=== PATIENT | female | born 1980 | race African-American/Black ===

== ENCOUNTER 2021-08-26 18:43 | Emergency (ER) | payer MEDICAID ==
[~2021-08-26] VITALS: Ht 165.1 cm; Wt 123.0 kg
[~2021-08-26 18:43] MED LIST: ABIL10 PO; ACET15SO5 OT; AMOX500T2 PO; ARIP30TA2 PO; METR-167 PO; NAPR-681 PO
[2021-08-26] MEDS ORDERED: IBUPROFEN 400MG TABLET PO ONE (19:15)
[2021-08-26 20:45] LABS: CHLORIDE 103 mEq/L (98-107); CLARITY URINE CLOUDY (CLEAR); COLOR URINE YELLOW (YELLOW); KETONES URINE NEGATIVE (NEGATIVE); LEUKOCYTE ESTERASE URINE 2+ (NEGATIVE); NITRITE URINE NEGATIVE (NEGATIVE); OCCULT BLOOD URINE TRACE (NEGATIVE); PH URINE 5.5 (4.5-8.0); PROTEIN URINE NEGATIVE (NEGATIVE); SPECIFIC GRAVITY URINE 1.017 (1.005-1.030)
[2021-08-26 20:49] LABS: BASOPHILS % 0.9 % (0.0-2.0); EOSINOPHILS % 1.1 % (0.0-5.0); ETHANOL BLOOD < 10 mg/dL; HEMATOCRIT. 39.5 % (36.0-48.0); HEMOGLOBIN. 13.2 g/dL (12.0-16.0); LYMPHOCYTES % 12.8 % (20.0-50.0); MEAN CORPUSCULAR HEMOGLOBIN 28.6 pg (28.0-32.0); MEAN CORPUSCULAR VOLUME 85.7 fL (81.0-99.0); MEAN PLATELET VOLUME 7.9 fl (7.4-10.4); MONOCYTES % 9.7 % (2.0-8.0); NEUTROPHILS % 75.5 % (40.0-76.0); PLATELET 290 x1000/uL (130-400); RED BLOOD CELL COUNT 4.61 mill/uL (4.2-5.4); RED CELL DISTRIBUTION WIDTH 13.6 % (11.6-14.6)
[2021-08-26 20:51] LABS: HCG SCREEN NEGATIVE
[2021-08-26 20:53] LABS: *AMPHETAMINES SCREEN URINE NEGATIVE (NEGATIVE); *BARBITURATES SCREEN URINE NEGATIVE (NEGATIVE); *BENZODIAZEPINES SCREEN URINE NEGATIVE (NEGATIVE); *COCAINE SCREEN URINE NEGATIVE (NEGATIVE)
[2021-08-26 20:54] LABS: CANNABINOID URINE SCREEN NEGATIVE (NEGATIVE); METHADONE URINE SCREEN NEGATIVE (NEGATIVE); OPIATES URINE SCREEN NEGATIVE (NEGATIVE); PHENCYCLIDINE URINE SCREEN NEGATIVE (NEGATIVE)
[2021-08-26] MEDS ORDERED: CEFTRIAXONE SODIUM 1 G/VIAL IM ONE (23:15)
[2021-08-27] MEDS ORDERED: SULF1TAB48 MT (05:30)
[2021-08-27 05:55] VITALS: BP 119/67
== END 2021-08-27 06:01 | disposition home or self-care (01) ==
LOC: ER 18:43
DX: F29 Unspecified psychosis not due to a substance or known physiological condition (principal); N39.0 Urinary tract infection, site not specified; Z20.822 Contact with and (suspected) exposure to COVID-19; R06.02 Shortness of breath; M79.18 Myalgia, other site
CPT/HCPCS: 36415; 80053; 80305; 80320; 81003; 81025; 84703; 85025; 96372; 99285; C9803; J0696; U0003; U0005; G0480